=== PATIENT | female | born 1960 | race Two or more races ===

== ENCOUNTER 2025-07-23 19:18 | Inpatient (IN) | payer MEDICARE, OTHER ==
[~2025-07-23] VITALS: Ht 170.2 cm; Wt 72.1 kg
[2025-07-23 20:02] LABS: PLATELET COUNT (AUTO) 407 K/uL (150-450); RED BLOOD CELL COUNT(AUTO) 3.18 MIL/uL (4.0-5.2); RED CELL DISTRIBUTION WIDTH 15.8 % (11.5-15.0); WHITE BLOOD COUNT (AUTO) 7.5 K/uL (4.3-11.0)
[2025-07-23 20:08] LABS: CALCIUM, SERUM 8.9 mg/dL (8.5-10.1); CREATININE 1.0 mg/dL (0.6-1.3); SODIUM SERUM 136 mmol/L (136-145); UREA NITROGEN, BLOOD 25 mg/dL (7-18)
[2025-07-23 20:14] LABS: ASPARTATE AMINOTRANSFERASE 14 U/L (15-37); TOTAL PROTEIN, SERUM 6.8 g/dL (6.4-8.2)
[2025-07-23 20:18] LABS: APPEARANCE,URINE CLEAR (CLEAR); BLOOD, URINE TRACE-INTA Ery/uL (NEGATIVE); LEUKOCYTE ESTERASE ,URINE NEGATIVE (NEGATIVE); NITRITE, URINE NEGATIVE (NEGATIVE); UGLUCOSE 3+ mg/dL (NEGATIVE)
[2025-07-23 20:21] LABS: AMPHETAMINE, URINE NEGATIVE (NEGATIVE); BARBITURATE, URINE NEGATIVE (NEGATIVE); BENZODIAZEPINE, URINE NEGATIVE (NEGATIVE); CANNABINOID, URINE NEGATIVE (NEGATIVE); COCCAINE, URINE NEGATIVE (NEGATIVE); OPIATE, URINE NEGATIVE (NEGATIVE)
[2025-07-23] MEDS ORDERED: LORAZEPAM INJ 2 MG/ML VIAL ONE (21:05)
[2025-07-23] MEDS: LORAZEPAM INJ 2 MG/ML VIAL IM ONE (21:06)
[2025-07-23 21:27] LABS: SQUAMOUS EPITHELIAL CELL,UR Few /HPF (None Seen)
[2025-07-23 21:28] LABS: ADD URINE CULTURE NO
[2025-07-23 21:43] LABS: ALCOHOL, BLOOD < 3 mg/dL (0-10)
[2025-07-23] MEDS ORDERED: SENN8.6T19 PO (23:52)
[2025-07-23] MEDS ORDERED: CLON1PAT13 TD (23:52)
[2025-07-23] MEDS ORDERED: DULO60CA45 PO (23:52)
[2025-07-23] MEDS ORDERED: PROG100C15 PO (23:52)
[2025-07-23] MEDS ORDERED: VALS160T2 PO (23:52)
[2025-07-23] MEDS ORDERED: CLON1TAB12 PO (23:52)
[2025-07-23] MEDS ORDERED: GABA600T12 PO (23:52)
[2025-07-23] MEDS ORDERED: PHEN-895 PO (23:52)
[2025-07-23] MEDS ORDERED: METO-357 PO (23:52)
[2025-07-23] MEDS ORDERED: ESTR2TAB PO (23:52)
[2025-07-24 00:30] VITALS: BP 149/72; TEMP 98.3; O2SAT 96
[2025-07-24] MEDS ORDERED: TEMAZEPAM 7.5 MG CAPSULE PO PRN (01:00)
[2025-07-24] MEDS ORDERED: MAG HYDROX/AL HYDROX/SIMETH 30 ML UDC PO PRN (01:00)
[2025-07-24] MEDS: BLOOD SUGAR DIAGNOSTIC 1 EACH STRIP IN ONE (02:51)
[2025-07-24] MEDS: ACETAMINOPHEN 325 MG TABLET PO PRN (03:40)
[2025-07-24 08:00] VITALS: BP 180/98; TEMP 98.7; O2SAT 97
[2025-07-24] MEDS: ESTRADIOL 1 MG TABLET PO SCH (09:00)
[2025-07-24] MEDS ORDERED: Medication Not On Formulary EA (Progesterone,Micronized (Prometrium) 100 MG) PO SCH (09:00)
[2025-07-24] MEDS: PHENAZOPYRIDINE HCL 200 MG TABLET PO SCH (09:00)
[2025-07-24] MEDS ORDERED: DULOXETINE HCL 30 MG CAPSULE.DR PO SCH ×2 (09:00)
[2025-07-24] MEDS: SENNOSIDES 8.6 MG TABLET PO SCH (09:03)
[2025-07-24] MEDS: METOPROLOL SUCCINATE 50 MG TAB.SR.24H PO SCH (09:03)
[2025-07-24] MEDS: GABAPENTIN 300 MG CAPSULE PO SCH (09:03)
[2025-07-24] MEDS: ENSURE ENLIVE CHOC 237 ML CAN PO SCH (09:04)
[2025-07-24] MEDS: TIZANIDINE HCL 4 MG TABLET PO SCH (09:04)
[2025-07-24] MEDS: VALSARTAN 80 MG TABLET PO SCH (09:04)
[2025-07-24] MEDS: HYDROCODONE/APAP 5/325MG TABLET PO PRN (12:52)
[2025-07-24 13:21] LABS: CALCIUM, SERUM 8.7 mg/dL (8.5-10.1); CREATININE 0.8 mg/dL (0.6-1.3); SODIUM SERUM 139.0 mmol/L (136-145); UREA NITROGEN, BLOOD 25.0 mg/dL (7-18)
[2025-07-24 16:00] VITALS: BP 183/100; TEMP 98.7; O2SAT 98
[2025-07-24] MEDS: MAGNESIUM HYDROXIDE 30 ML UDC PO PRN (16:12)
[2025-07-24] MEDS: LORAZEPAM 0.5 MG TABLET PO PRN (16:12)
[2025-07-24] MEDS: POTASSIUM CHLORIDE 20 MEQ TAB.PRT.SR PO ONE (17:16)
[2025-07-24] MEDS: DULOXETINE HCL 30 MG CAPSULE.DR PO SCH (17:16)
[2025-07-24 20:00] VITALS: BP 164/95; TEMP 98.7; O2SAT 97
[2025-07-24] MEDS: TEMAZEPAM 7.5 MG CAPSULE PO PRN (20:26)
[2025-07-25] MEDS: LORAZEPAM 0.5 MG TABLET PO PRN (00:24)
[2025-07-25 08:15] VITALS: BP 168/100; TEMP 97.7; O2SAT 95
[2025-07-25] MEDS: CLONIDINE HCL 0.1 MG TABLET PO PRN (12:34)
[2025-07-25 15:01] LABS: PLATELET COUNT (AUTO) 356 K/uL (150-450); RED BLOOD CELL COUNT(AUTO) 3.26 MIL/uL (4.0-5.2); RED CELL DISTRIBUTION WIDTH 15.5 % (11.5-15.0); WHITE BLOOD COUNT (AUTO) 6.0 K/uL (4.3-11.0)
[2025-07-25 15:10] LABS: CALCIUM, SERUM 8.9 mg/dL (8.5-10.1); CREATININE 0.9 mg/dL (0.6-1.3); SODIUM SERUM 137.0 mmol/L (136-145); UREA NITROGEN, BLOOD 21.0 mg/dL (7-18)
[2025-07-25 15:15] LABS: LDL 106.0 mg/dL (0-99)
[2025-07-25 16:00] VITALS: BP 164/99; TEMP 98.6; O2SAT 96
[2025-07-25 20:13] VITALS: BP 126/76; TEMP 98; O2SAT 97
[2025-07-26 08:00] VITALS: BP 158/106; TEMP 98.8; O2SAT 97
[2025-07-26] MEDS: CYCLOBENZAPRINE 10 MG TABLET PO PRN (11:01)
[2025-07-26 16:00] VITALS: BP 138/83; TEMP 98; O2SAT 95
[2025-07-26 20:00] VITALS: BP 132/93; TEMP 98.2; O2SAT 98
[2025-07-27 08:25] VITALS: BP 160/103; TEMP 97.6; O2SAT 100
[2025-07-27] MEDS ORDERED: HYDROCODONE/APAP 5/325MG TABLET PO PRN (11:30)
[2025-07-27 16:09] VITALS: BP 149/91; TEMP 97.9; O2SAT 95
[2025-07-27 21:07] VITALS: BP 114/65; TEMP 97.6; O2SAT 95
[2025-07-27] MEDS: HYDROCODONE/APAP 5/325MG TABLET ONE (22:57)
[2025-07-27] MEDS: HYDROCODONE/APAP 7.5/325MG 1 EACH TABLET PO PRN (23:01)
[2025-07-28 04:00] VITALS: BP 155/90; TEMP 98.5; O2SAT 98
[2025-07-28 04:31] LABS: APPEARANCE,URINE CLOUDY (CLEAR); BLOOD, URINE NEGATIVE Ery/uL (NEGATIVE); LEUKOCYTE ESTERASE ,URINE NEGATIVE (NEGATIVE); NITRITE, URINE POSITIVE (NEGATIVE); UGLUCOSE TRACE mg/dL (NEGATIVE)
[2025-07-28] MEDS: HYDROCODONE/APAP 5/325MG TABLET ONE (04:35)
[2025-07-28 04:40] LABS: SQUAMOUS EPITHELIAL CELL,UR Moderate /HPF (None Seen)
[2025-07-28 04:41] LABS: ADD URINE CULTURE YES
[2025-07-28] MEDS: SULFAMETH/TRIMETH 800/160 MG 1 UDTAB TABLET PO SCH (06:03)
[2025-07-28 08:00] VITALS: BP 179/104; TEMP 98.6; O2SAT 98
[2025-07-28] MEDS: HYDROCODONE/APAP 10/325MG TABLET PO PRN (08:19)
[2025-07-28] MEDS ORDERED: SULFAMETH/TRIMETH 800/160 MG 1 UDTAB TABLET PO SCH (09:00)
[2025-07-28 16:00] VITALS: BP 162/108; TEMP 97.7; O2SAT 99
[2025-07-28 16:20] VITALS: BP 146/96; O2SAT 98
[2025-07-28 19:49] VITALS: BP 100/60; TEMP 97.8; O2SAT 92
[2025-07-29 08:00] VITALS: BP 158/89; TEMP 97.9; O2SAT 99
[2025-07-29 16:12] VITALS: BP 100/56; TEMP 97.8; O2SAT 97
[2025-07-29 20:00] VITALS: BP 105/57; TEMP 97.5; O2SAT 93
[2025-07-30 08:00] VITALS: BP 139/83; TEMP 98; O2SAT 95
[2025-07-30] MEDS: CIPROFLOXACIN HCL 250 MG TABLET PO SCH (13:29)
[2025-07-30 16:12] VITALS: BP 100/59; TEMP 98.1; O2SAT 95
[2025-07-31 07:00] VITALS: BP 166/87; TEMP 98.1; O2SAT 94
[2025-07-31 16:00] VITALS: BP 153/99; TEMP 98.2; O2SAT 99
[2025-07-31 20:00] VITALS: BP 168/96; TEMP 98.2; O2SAT 96
[2025-08-01 08:00] VITALS: BP 171/110; TEMP 97.8; O2SAT 97
[2025-08-01 16:12] VITALS: BP 118/65; TEMP 97.8; O2SAT 97
[2025-08-01 20:57] VITALS: BP 132/87; TEMP 98.1; O2SAT 97
[2025-08-02 08:00] VITALS: BP 171/107; TEMP 98.6; O2SAT 97
[2025-08-02 16:00] VITALS: BP 124/88; TEMP 97.8; O2SAT 98
[2025-08-02 20:12] VITALS: BP 154/88; TEMP 97.7; O2SAT 95
[2025-08-03 08:00] VITALS: BP 180/102; TEMP 98.7; O2SAT 97
[2025-08-03 08:56] VITALS: BP 180/102
[2025-08-03] MEDS: AMLODIPINE BESYLATE 5 MG TABLET PO SCH (08:56)
[2025-08-03] MEDS ORDERED: GABA600T12 PO (14:23)
[2025-08-03] MEDS ORDERED: METO-357 PO (14:23)
[2025-08-03] MEDS ORDERED: PHEN-895 PO (14:23)
[2025-08-03] MEDS ORDERED: SENN8.6T19 PO (14:23)
[2025-08-03] MEDS ORDERED: AMLO-212 PO (14:23)
[2025-08-03] MEDS ORDERED: DULO60CA45 PO (14:23)
[2025-08-03] MEDS ORDERED: ESTR2TAB PO (14:23)
[2025-08-03] MEDS ORDERED: PROG100C15 PO (14:23)
[2025-08-03] MEDS ORDERED: VALS160T2 PO (14:23)
[2025-08-03] MEDS ORDERED: CLON1PAT13 TD (14:23)
[2025-08-03] MEDS ORDERED: CIPR-263 PO (14:23)
== END 2025-08-03 14:50 | disposition home or self-care (01) | DRG 881 ==
LOC: ER 19:23 → GPS 23:40
PROVIDERS: ADMIT Nurse Practitioner Psychiatric/Mental Health; ATTEND Internal Medicine
DX: F32.9 Major depressive disorder, single episode, unspecified (principal); R45.851 Suicidal ideations; K57.32 Diverticulitis of large intestine without perforation or abscess without bleeding; N39.0 Urinary tract infection, site not specified; F41.1 Generalized anxiety disorder; F29 Unspecified psychosis not due to a substance or known physiological condition; F10.10 Alcohol abuse, uncomplicated; F12.10 Cannabis abuse, uncomplicated; Y90.0 Blood alcohol level of less than 20 mg/100 ml; Z20.822 Contact with and (suspected) exposure to COVID-19; G89.29 Other chronic pain; F11.10 Opioid abuse, uncomplicated; I48.91 Unspecified atrial fibrillation; Z90.49 Acquired absence of other specified parts of digestive tract; G57.00 Lesion of sciatic nerve, unspecified lower limb; D53.9 Nutritional anemia, unspecified; E87.6 Hypokalemia; B96.89 Other specified bacterial agents as the cause of diseases classified elsewhere; I10 Essential (primary) hypertension; Z87.440 Personal history of urinary (tract) infections; Z90.710 Acquired absence of both cervix and uterus; G47.00 Insomnia, unspecified; Z87.898 Personal history of other specified conditions; Z98.890 Other specified postprocedural states; Z98.82 Breast implant status; Z73.6 Limitation of activities due to disability; R22.0 Localized swelling, mass and lump, head
CPT/HCPCS: 36415; 70490-TC; 80048-TC; 80061-TC; 80076-TC; 81001; 85025-TC; 87086-TC; 97110-TC; 97116-TC; 97530-TC; G0480; J2060